=== PATIENT | female | born 1970 | race African-American/Black ===

== ENCOUNTER 2017-09-15 20:53 | Inpatient (IN) | payer OTHER ==
[2017-09-15] MEDS ORDERED: PEPCID IV ONE (21:17)
[2017-09-15] MEDS ORDERED: BENADRYL IV ONE (21:17)
[2017-09-15] MEDS ORDERED: NACL 0.9% 1000 ML 1,000 ML IV ONE (21:17)
[2017-09-15] MEDS ORDERED: ZOFRAN IV ONE (21:18)
[2017-09-15] MEDS ORDERED: MORPHINE IV ONE (21:18)
--- NOTE | 2017-09-15 21:22 | Emergency Department Report ---
HPI - General Chief Complaint: Allergic Reaction Time Seen by Provider: 09/15/17 21:11 - HPI HPI: 47-year-old female the past history of hypertension presents to the hospital complaining of facial swelling, diffuse pruritus worse in the face, and generalized body aches at 7 AM. Patient took her lisinopril as scheduled and a new medication prescribed for body pain named Sulindac 200mg at 6 am prior to symptom onset one hour post ingestion. About 3 PM patient return to the original doctor who prescribed this medication with her current complaints. The office advised that she discontinue the Sulindac, drink water, increase her protein intake, and return to the ER if symptoms worsen. Patient went home to sleep and when she woke up she was not feeling any better. Denies any improvement or worsening in symptoms and they have remained relatively stable. She has lip swelling without tongue swelling and has redness to face and arms without rash. She has difficulty breathing when trying to swallow liquids and this evening she developed a headache. Patient had 2 episodes of syncope today prior to arrival. ED Past Medical Hx - Past Medical History Previous Medical History?: Yes Hx Hypertension: Yes - Surgical History Past Surgical History?: No - Social History Smoking Status: Never Smoker Substance Use Type: None ED Review of Systems ROS: Stated complaint: ALLERGIC REACTION Other details as noted in HPI Comment: All other systems reviewed and negative Physical Exam - Physical Exam Vital Signs: Vital Signs 09/15/17 21:00 Temperature 100.2 F H Pulse Rate 98 H Respiratory 22 Rate Blood Pressure 125/58 O2 Sat by Pulse 97 Oximetry Physical Exam: General: No limitations, patient is alert in no acute distress Head exam: Atraumatic, normocephalic Eyes exam: Normal appearance, pupils equal reactive to light, extraocular movements intact ENT: Mild lip swelling without tongue swelling or swelling to posterior pharynx Neck exam: Normal inspection, full range of motion, no meningismus. Nontender, no stridor Respiratory exam: Clear to auscultation bilateral, no wheezes, rales, crackles Cardiovascular: Normal rate and rhythm Abdomen: Soft, nondistended, and nontender, with normal bowel sounds, no rebound, or guarding Extremity: Full range of motion normal inspection no deformity Back: Normal Inspection, full range of motion, no tenderness Neurologic: Alert, oriented x3, cranial nerves intact, no motor or sensory deficit Psychiatric: normal affect, normal mood Skin: Confluent redness to face and arms without hives ED Course Vital Signs 09/15/17 21:00 Temperature 100.2 F H Pulse Rate 98 H Respiratory 22 Rate Blood Pressure 125/58 O2 Sat by Pulse 97 Oximetry - Reevaluation(s) Reevaluation #1: 09/15/17 21:27 Patient had a oral temperature 100.2 but rectal temperature was less than 100 09/15/17 23:06 Patient currently resting after treatment Reevaluation #2: 09/15/17 23:51 Unfortunately patient urinated in a bed pruett and assisting nurse to away sample. Waiting urination for recollection ED Medical Decision Making - Lab Data Result diagrams: 09/15/17 21:19 09/15/17 21:19 Lab Results 09/15/17 09/15/17 09/15/17 Range/Units 21:19 21:19 21:19 WBC 20.3 H (4.5-11.0) K/mm3 RBC 3.89 (3.65-5.03) M/mm3 Hgb 10.8 (10.1-14.3) gm/dl Hct 32.0 (30.3-42.9) % MCV 82 (79-97) fl MCH 28 (28-32) pg MCHC 34 (30-34) % RDW 14.9 (13.2-15.2) % Plt Count 230 (140-440) K/mm3 Add Manual Diff Complete Total Counted 100 Seg Neutrophils % Commercial Attorney Seg Neuts % (Manual) 88.0 H (40.0-70.0) % Band Neutrophils % 7.0 % Lymphocytes % (Manual) 3.0 L (13.4-35.0) % Reactive Lymphs % (Man) 0 % Monocytes % (Manual) 0 (0.0-7.3) % Eosinophils % (Manual) 2.0 (0.0-4.3) % Basophils % (Manual) 0 (0.0-1.8) % Metamyelocytes % 0 % Myelocytes % 0 % Promyelocytes % 0 % Blast Cells % 0 % Nucleated RBC % Not Reportable Seg Neutrophils # Man 17.9 H (1.8-7.7) K/mm3 Band Neutrophils # 1.4 K/mm3 Lymphocytes # (Manual) 0.6 L (1.2-5.4) K/mm3 Abs React Lymphs (Man) 0.0 K/mm3 Monocytes # (Manual) 0.0 (0.0-0.8) K/mm3 Eosinophils # (Manual) 0.4 (0.0-0.4) K/mm3 Basophils # (Manual) 0.0 (0.0-0.1) K/mm3 Metamyelocytes # 0.0 K/mm3 Myelocytes # 0.0 K/mm3 Promyelocytes # 0.0 K/mm3 Blast Cells # 0.0 K/mm3 WBC Morphology Not Reportable Hypersegmented Neuts Not Reportable Hyposegmented Neuts Not Reportable Hypogranular Neuts Not Reportable Smudge Cells Not Reportable Toxic Granulation Not Reportable Toxic Vacuolation Not Reportable Dohle Bodies Not Reportable Pelger-Huet Anomaly Not Reportable Tina Rods Not Reportable Platelet Estimate Consistent w auto Clumped Platelets Not Reportable Plt Clumps, EDTA Not Reportable Large Platelets Not Reportable Giant Platelets Not Reportable Platelet Satelliting Not Reportable Plt Morphology Comment Not Reportable RBC Morphology Normal Dimorphic RBCs Not Reportable Polychromasia Not Reportable Hypochromasia Not Reportable Poikilocytosis Not Reportable Anisocytosis Not Reportable Microcytosis Not Reportable Macrocytosis Not Reportable Spherocytes Not Reportable Pappenheimer Bodies Not Reportable Sickle Cells Not Reportable Target Cells Not Reportable Tear Drop Cells Not Reportable Ovalocytes Not Reportable Helmet Cells Not Reportable Gavin-[place] Bodies Not Reportable Fitzwilliam Rings Not Reportable [place] Cells Not Reportable Bite Cells Not Reportable Crenated Cell Not Reportable Elliptocytes Not Reportable Acanthocytes (Spur) Not Reportable Rouleaux Not Reportable Hemoglobin C Crystals Not Reportable Schistocytes Not Reportable Malaria parasites Not Reportable Saroj Bodies Not Reportable Hem Pathologist Commnt No Sodium 126 L (137-145) mmol/L Potassium 4.0 (3.6-5.0) mmol/L Chloride 89.1 L (98-107) mmol/L Carbon Dioxide 23 (22-30) mmol/L Anion Gap 18 mmol/L BUN 26 H (7-17) mg/dL Creatinine 1.5 H (0.7-1.2) mg/dL Estimated GFR 37 ml/min BUN/Creatinine Ratio 17 % Glucose 151 H (65-100) mg/dL Osmolality Mosm/kg Lactic Acid (0.7-2.0) mmol/L Calcium 8.5 (8.4-10.2) mg/dL Total Creatine Kinase (30-135) units/L CK-MB (CK-2) (0.0-4.0) ng/mL CK-MB (CK-2) Rel Index (0-4) Troponin T (0.00-0.029) ng/mL TSH (0.270-4.200) mlU/mL Free T4 (0.76-1.46) ng/dL HCG, Qual Negative (Negative) 09/15/17 09/15/17 09/15/17 Range/Units 21:19 23:11 23:11 WBC (4.5-11.0) K/mm3 RBC (3.65-5.03) M/mm3 Hgb (10.1-14.3) gm/dl Hct (30.3-42.9) % MCV (79-97) fl MCH (28-32) pg MCHC (30-34) % RDW (13.2-15.2) % Plt Count (140-440) K/mm3 Add Manual Diff Total Counted Seg Neutrophils % Seg Neuts % (Manual) (40.0-70.0) % Band Neutrophils % % Lymphocytes % (Manual) (13.4-35.0) % Reactive Lymphs % (Man) % Monocytes % (Manual) (0.0-7.3) % Eosinophils % (Manual) (0.0-4.3) % Basophils % (Manual) (0.0-1.8) % Metamyelocytes % % Myelocytes % % Promyelocytes % % Blast Cells % % Nucleated RBC % Seg Neutrophils # Man (1.8-7.7) K/mm3 Band Neutrophils # K/mm3 Lymphocytes # (Manual) (1.2-5.4) K/mm3 Abs React Lymphs (Man) K/mm3 Monocytes # (Manual) (0.0-0.8) K/mm3 Eosinophils # (Manual) (0.0-0.4) K/mm3 Basophils # (Manual) (0.0-0.1) K/mm3 Metamyelocytes # K/mm3 Myelocytes # K/mm3 Promyelocytes # K/mm3 Blast Cells # K/mm3 WBC Morphology Hypersegmented Neuts Hyposegmented Neuts Hypogranular Neuts Smudge Cells Toxic Granulation Toxic Vacuolation Dohle Bodies Pelger-Huet Anomaly Tina Rods Platelet Estimate Clumped Platelets Plt Clumps, EDTA Large Platelets Giant Platelets Platelet Satelliting Plt Morphology Comment RBC Morphology Dimorphic RBCs Polychromasia Hypochromasia Poikilocytosis Anisocytosis Microcytosis Macrocytosis Spherocytes Pappenheimer Bodies Sickle Cells Target Cells Tear Drop Cells Ovalocytes Helmet Cells Gavin-[place] Bodies Fitzwilliam Rings Rosina Cells Bite Cells Crenated Cell Elliptocytes Acanthocytes (Spur) Rouleaux Hemoglobin C Crystals Schistocytes Malaria parasites Saroj Bodies Hem Pathologist Commnt Sodium (137-145) mmol/L Potassium (3.6-5.0) mmol/L Chloride (98-107) mmol/L Carbon Dioxide (22-30) mmol/L Anion Gap mmol/L BUN (7-17) mg/dL Creatinine (0.7-1.2) mg/dL Estimated GFR ml/min BUN/Creatinine Ratio % Glucose (65-100) mg/dL Osmolality 274 Mosm/kg Lactic Acid 2.10 H* (0.7-2.0) mmol/L Calcium (8.4-10.2) mg/dL Total Creatine Kinase 91 (30-135) units/L CK-MB (CK-2) 2.1 (0.0-4.0) ng/mL CK-MB (CK-2) Rel Index 2.3 (0-4) Troponin T < 0.010 (0.00-0.029) ng/mL TSH 3.510 (0.270-4.200) mlU/mL Free T4 1.02 (0.76-1.46) ng/dL HCG, Qual (Negative) - EKG Data -: EKG Interpreted by Md EKG shows normal: sinus rhythm, axis (qrs 49), QRS complexes (qrsd 83), ST-T waves (no stemi/t inv) Rate: normal (49) - EKG Data When compared to previous EKG there are: previous EKG unavailable - Radiology Data Radiology results: report reviewed FINAL REPORT EXAM: XR CHEST 1V AP HISTORY: leukcytosis TECHNIQUE: Two view chest PA and lateral PRIORS: None. FINDINGS: Cardiac and mediastinal contours are unremarkable. No focal pulmonary infiltrate is identified. No pleural fluid collection seen. Pulmonary vasculature is unremarkable. IMPRESSION: Negative two -view chest FINAL REPORT EXAM: CT HEAD/BRAIN WO CON HISTORY: syncope, allergic reaction, hawthorne TECHNIQUE: CT head without contrast PRIORS: None. FINDINGS: No acute intra- axial or extra-axial hemorrhage is identified. There is no evidence of midline shift or mass effect. The ventricles and sulci are within normal limits. Mcfarlane- white matter differentiation is intact. No acute parenchymal abnormalities seen. Bony calvarium is grossly intact. Visualized portions of the mastoids and paranasal sinuses are unremarkable. IMPRESSION: Negative CT head - Medical Decision Making Hyponatremia Pt takes Lisinopril 10 mg. RN called pt's pharmacy to confirm that the medication does not contain HCTZ Additional labs and urine lites ordered due to hyponatremia Patient receiving normal saline Leukocytosis Patient had a oral temperature 100.2 rectal temp of 99.8 The patient is a generalized body aches but no fever Additional labs ordered as per sepsis protocol. mild lactic acid elevation 30 mL per KG bolus of normal saline ordered Urine collection pending at dispo differential includes stress reaction Patient had 2 syncopal episode prior to arrival complained of headache Ct head and EKG unremarkable Cardiac enzymes are normal Unsure patient is having a reaction to the prescribed new NSAID or reaction to her lisinopril She was treated with Solu-Medrol, Benadryl, and Pepcid - Differential Diagnosis allergic reaction, angioedema, arrhythmia, intracranial abnormality Critical Care Time: No Critical care attestation.: If time is entered above; I have spent that time in minutes in the direct care of this critically ill patient, excluding procedure time. ED Disposition Clinical Impression: Allergic reaction caused by a drug, Leukocytosis, Syncope, Hyponatremia, Generalized body aches, Renal insufficiency, Lactic acid increased Disposition: OP ADMIT IP TO THIS HOSP Is pt being admited?: Yes Condition: Stable Time of Disposition: 00:21 (Dr Monge/hosp)
[2017-09-15 21:36] LABS: Hemoglobin 10.8 gm/dl (10.1-14.3); Mean Corpuscular HGB Conc 34 % (30-34); Mean Corpuscular Hemoglobin 28 pg (28-32); Mean Corpuscular Volume 82 fl (79-97); Platelet Count 230 K/mm3 (140-440); Red Blood Count 3.89 M/mm3 (3.65-5.03); Red Cell Distribution Width 14.9 % (13.2-15.2)
[2017-09-15 21:44] LABS: Calcium 8.5 mg/dL (8.4-10.2)
[2017-09-15 21:51] LABS: Creatine Kinase MB 2.1 ng/mL (0.0-4.0)
--- NOTE | 2017-09-15 22:28 | Cat Scan Report ---
FINAL REPORT EXAM: CT HEAD/BRAIN WO CON HISTORY: syncope, allergic reaction, hawthorne TECHNIQUE: CT head without contrast PRIORS: None. FINDINGS: No acute intra-axial or extra-axial hemorrhage is identified. There is no evidence of midline shift or mass effect. The ventricles and sulci are within normal limits. Mcfarlane-white matter differentiation is intact. No acute parenchymal abnormalities seen. Bony calvarium is grossly intact. Visualized portions of the mastoids and paranasal sinuses are unremarkable. IMPRESSION: Negative CT head
[2017-09-15 22:40] LABS: Band Neutrophils # (Manual) 1.4 K/mm3; Basophils % (Manual) 0 % (0.0-1.8); Monocytes % (Manual) 0 % (0.0-7.3); Platelet Estimate Consistent w Auto; RBC Morphology Normal; Total Cells Counted 100
[2017-09-15] MEDS ORDERED: NACL 0.9% 1000 ML IV ONE ×2 (22:58→23:01)
--- NOTE | 2017-09-15 23:54 | XRay Report ---
FINAL REPORT EXAM: XR CHEST 1V AP HISTORY: leukcytosis TECHNIQUE: Two view chest PA and lateral PRIORS: None. FINDINGS: Cardiac and mediastinal contours are unremarkable. No focal pulmonary infiltrate is identified. No pleural fluid collection seen. Pulmonary vasculature is unremarkable. IMPRESSION: Negative two-view chest
[2017-09-16 00:15] LABS: Free T4 (Free Thyroxine) 1.02 ng/dL (0.76-1.46)
[2017-09-16] MEDS ORDERED: BENADRYL IV PRN (01:05)
[2017-09-16 01:18] LABS: Bacteria,Urine 1+ /HPF (Negative); Bilirubin,Urine NEG (Negative); Blood,Urine SM (Negative); Color,Urine Straw (Yellow); Protein,Urine <15 mg/dL mg/dL (Negative); Urobilinogen,Urine < 2.0 mg/dL (<2.0); WBC,Urine < 1.0 /HPF (0.0-6.0)
[2017-09-16] MEDS: NACL 0.9% 1000 ML 1,000 ML IV SCH ×3 (04:04→22:55)
--- NOTE | 2017-09-16 05:04 | History and Physical Report ---
CHIEF COMPLAINT: Facial swelling with diffuse itching and generalized body pain. HISTORY OF PRESENT ILLNESS: The patient is a 47-year-old female who was started on nonsteroidal anti-inflammatory agent, Sulindac. When the patient took this medication, 'she started having swelling in the face, especially in the lips but there was no swelling in the tongue and also the patient developed diffuse pruritus, and there was also generalized body pain. The patient is also on lisinopril for blood pressure control. The patient went to the doctor that prescribed Sulindac after she developed symptoms of rashes and itching and swelling and was advised by the Doctor that prescribed Sulindac to discontinue Sulindac, to drink water and come to the Emergency Room if the symptoms persist. The patient went home, slept, but the symptom did not renan and she decided to come to the Emergency Room. There was no history of chest pain. No history of nausea, vomiting or dizziness. However, the patient had two episodes of syncope prior to coming to the Emergency Room. PAST MEDICAL HISTORY: Pertinent for hypertension. PAST SURGICAL HISTORY: Unremarkable. FAMILY HISTORY: Noncontributory. SOCIAL HISTORY: The patient does not smoke, does not drink alcohol, does not use illicit drugs. MEDICATIONS: The patient is on lisinopril, dose and frequency unknown. Also, the patient was on Sulindac with dose and frequency unknown. ALLERGIES: Prior to this presentation, the patient has no known drug allergies except for this new reaction suspected to be due to Sulindac. REVIEW OF SYSTEMS: CONSTITUTIONAL: There is no fever, no chills, no diaphoresis. HEENT: There is no headache or sore throat. CARDIOVASCULAR: There is no chest pain or orthopnea. RESPIRATORY: There is no shortness of breath or cough. GASTROINTESTINAL: There is no nausea, no vomiting, no abdominal pain, diarrhea or constipation. NEUROLOGICAL: There is no numbness, no dizziness, no altered mental status. MUSCULOSKELETAL: Generalized body pain noted. No joint swelling. DERMATOLOGICAL: Generalized itching noted, swelling of the lips noted and swelling of the face also noted. GENITOURINARY: There is no dysuria, hematuria or flank pain. Rest of system review is normal. PHYSICAL EXAMINATION: GENERAL: At the time of exam, the patient was found to be alert, oriented x 3 and not in acute distress. VITAL SIGNS: At the initial time of presentation showed a temperature of 100.2 degrees Fahrenheit, pulse of 98, respirations 22, blood pressure of 125/58, O2 sat of 97% on room air. HEENT: Eyes show pupils to be equal, round, reactive to light and accommodation. Extraocular muscles are intact. Oral mucosa shows swelling of the lips involving the upper and lower limbs but no swelling in the tongue or in the mouth. CARDIOVASCULAR: Showed normal first and second heart sounds with no gallops or murmurs. RESPIRATORY: Show good air entry on both sides of the lung with no abnormal breath sounds. GASTROINTESTINAL SYSTEM: Showed abdomen to be full, soft, nontender with no organomegaly or rigidity. NEUROLOGICAL: Shows no focal deficit. MUSCULOSKELETAL SYSTEM: Show no joint swelling or tenderness. DERMATOLOGICAL SYSTEM: Show no skin rash. GENITOURINARY: Showing no costovertebral angle tenderness. PERTINENT LABORATORY AND IMAGING STUDIES: The patient has CBC done with elevated white count of 20,300 with normal hemoglobin, normal hematocrit, and normal MCV. CBC differential; however, shows elevated segmented neutrophils, count of 88% with unremarkable band and unremarkable lymphocytes. The patient's chemistry showed low sodium of 126, with low chloride of 89 and elevated BUN of 26 and elevated creatinine of 1.3, patient's lactic acid level was elevated with a value of 2.1. test was negative. Cardiac enzymes were unremarkable. The patient's urinalysis was unremarkable and has low specific gravity of 1.002. IMAGING STUDIES: The patient had CT of the head without contrast done that shows negative study, the patient also had a chest x-ray done which shows negative 2-view chest x-ray. DIAGNOSES: 1. Allergic reaction to possibly Sulindac. 2. Sepsis. 3. Leukocytosis. 4. Acute kidney injury. 5. Hyponatremia. PLAN: 1. The patient will be admitted to medical floor on telemetry. 2. The patient will be on IV Solu-Medrol 60 mg q. 6 hours. 3. The patient will be on IV Benadryl 25 mg every 6 hours as needed for itching and allergic reaction. Also, the patient will be on famotidine 20 mg by mouth twice daily. 4. The patient will be on IV Zosyn 4.5 grams q. 8 hours. 5. The patient will be on IV normal saline at 125 mL/hour and will be on oxygen by nasal cannula at 2 liter per minute. 6. The patient will have lactic acid level checked this morning and also will have basic metabolic panel as well as a CBC checked this morning, 09/16/2017, to trend levels of sodium, CBC, and lactic acid. 7. DVT prophylaxis will be through heparin 5000 units subQ q. 12 hours. Also, sequential compressive device. 8. The patient's diet to be low sodium diet. 9. The patient's home medications will be reconciled and applied later on. JOB# [id number] OCN/NTS MTDD
[2017-09-16 05:18] LABS: Hematocrit 32.8 % (30.3-42.9); Hemoglobin 10.7 gm/dl (10.1-14.3); Mean Corpuscular HGB Conc 33 % (30-34); Mean Corpuscular Hemoglobin 27 pg (28-32); Mean Corpuscular Volume 84 fl (79-97); Platelet Count 217 K/mm3 (140-440); Red Blood Count 3.92 M/mm3 (3.65-5.03); Red Cell Distribution Width 15.2 % (13.2-15.2)
[2017-09-16 05:33] LABS: Calcium 8.5 mg/dL (8.4-10.2)
[2017-09-16] MEDS ORDERED: ZOSYN/NS 3.375GM/50ML 3.375 GM/50 ML BAG IV SCH (06:00)
[2017-09-16] MEDS: ZOSYN/NS 4.5GM/100ML 4.5 GM/100 ML VIAL IV SCH ×3 (06:00→22:55)
[2017-09-16 06:58] LABS: Band Neutrophils # (Manual) 6.4 K/mm3; Basophils % (Manual) 0 % (0.0-1.8); Eosinophils % (Manual) 0 % (0.0-4.3); Monocytes % (Manual) 0.5 % (0.0-7.3); Total Cells Counted 200
[2017-09-16 06:59] LABS: Platelet Estimate Consistent w Auto
[2017-09-16] MEDS ORDERED: TYLENOL PO PRN (08:34)
[2017-09-16] MEDS: PEPCID PO SCH ×2 (09:26→22:55)
[2017-09-16] MEDS: HEPARIN SUB-Q SCH ×2 (09:27→22:55)
--- NOTE | 2017-09-16 17:25 | Event Note ---
Date: 09/16/17
[2017-09-17] MEDS: ZOSYN/NS 4.5GM/100ML 4.5 GM/100 ML VIAL IV SCH ×2 (05:44→13:26)
[2017-09-17 06:40] LABS: Hematocrit 27.9 % (30.3-42.9); Hemoglobin 9.1 gm/dl (10.1-14.3); Mean Corpuscular HGB Conc 33 % (30-34); Mean Corpuscular Hemoglobin 28 pg (28-32); Mean Corpuscular Volume 84 fl (79-97); Platelet Count 217 K/mm3 (140-440); Red Blood Count 3.31 M/mm3 (3.65-5.03); Red Cell Distribution Width 15.4 % (13.2-15.2)
[2017-09-17 08:57] LABS: Monocytes % (Manual) 0 % (0.0-7.3); Total Cells Counted 100
[2017-09-17 08:59] LABS: Anisocytosis 1+; Basophils % (Manual) 0 % (0.0-1.8); Eosinophils % (Manual) 0 % (0.0-4.3); Ovalocytes Few; Poikilocytosis 1+; Tear Drop Cells Few
[2017-09-17 09:00] LABS: Platelet Estimate Cons
[2017-09-17] MEDS: HEPARIN SUB-Q SCH (10:48)
[2017-09-17] MEDS: PEPCID PO SCH (10:49)
[2017-09-17] MEDS ORDERED: APRESOLINE IV PRN (12:46)
[2017-09-17] MEDS ORDERED: ZESTRIL PO SCH (13:00)
--- NOTE | 2017-09-17 15:57 | Discharge Summary ---
Providers - Providers Date of Admission: 09/16/17 01:03 Date of discharge: 09/17/17 Attending physician: HAN TRENT Primary care physician: SPEECH PATHOLOGY ASSISTANT Hospitalization Condition: Stable Hospital course: 47-year-old female the past history of hypertension presents to the hospital complaining of facial swelling, diffuse pruritus worse in the face, and generalized body aches at 7 AM. Patient took her lisinopril as scheduled and a new medication prescribed for body pain named Sulindac 200mg at 6 am prior to symptom onset one hour post ingestion. Discharge diagnosis: Angioedema due to allergic reaction to med h/o Lupus HTN, moderately controlled STACY, vasomotor nephropathy, resolved Obesity, dietary recommendation provided Disposition: DC- TO HOME OR SELFCARE Time spent for discharge: 34 minutes Core Measure Documentation - Palliative Care Palliative Care/ Comfort Measures: Not Applicable - Core Measures Any of the following diagnoses?: none Exam - Constitutional Vitals: Temp Pulse Resp BP Pulse Ox 98.8 F 78 19 170/88 97 09/17/17 11:59 09/17/17 13:25 09/17/17 11:59 09/17/17 13:25 09/17/17 12:00 General appearance: Present: no acute distress, well-nourished - EENT Eyes: Present: PERRL ENT: hearing intact, clear oral mucosa - Neck Neck: Present: supple, normal ROM - Respiratory Respiratory effort: normal Respiratory: bilateral: CTA - Cardiovascular Heart Sounds: Present: S1 & S2. Absent: rub, click - Extremities Extremities: pulses symmetrical, No edema Peripheral Pulses: within normal limits - Abdominal General gastrointestinal: Present: soft, non-tender, non-distended, normal bowel sounds - Integumentary Integumentary: Present: clear, warm, dry - Musculoskeletal Musculoskeletal: gait normal, strength equal bilaterally - Psychiatric Psychiatric: appropriate mood/affect, intact judgment & insight - Neurologic Neurologic: CNII-XII intact, moves all extremities Plan Activity: advance as tolerated Weight Bearing Status: Weight Bear as Tolerated Diet: low fat, low salt Prescriptions: diphenhydrAMINE [Benadryl CAP] 25 mg PO Q6HR PRN #10 capsule PRN Reason: Allergy Symptoms Prednisone 10 mg PO DAILY #10
[2017-09-17 16:03] VITALS: BP 189/103
== END 2017-09-17 17:45 | disposition home or self-care (01) | DRG 871 ==
LOC: ED 20:53 → 3A 09-16 01:03
PROVIDERS: ADMIT Internal Medicine; ATTEND Internal Medicine
DX: A41.9 Sepsis, unspecified organism (principal); N17.0 Acute kidney failure with tubular necrosis; E87.1 Hypo-osmolality and hyponatremia; T78.3XXA Angioneurotic edema, initial encounter; T50.995A Adverse effect of other drugs, medicaments and biological substances, initial encounter; I10 Essential (primary) hypertension; E66.9 Obesity, unspecified; Z68.32 Body mass index [BMI] 32.0-32.9, adult; Y92.89 Other specified places as the place of occurrence of the external cause
CPT/HCPCS: 36415; 70450; 71045; 80048; 81001; 82140; 82436; 82550; 82553; 83930; 83935; 84300; 84439; 84443; 84484; 84703; 85007; 85025; 87040; 87086; 93005; 93010; 94760; 96361; 96374; 96375; J0360; J1200; J1644; J2270; J2405; J2543; J2920; J2930; J7030